=== PATIENT | male | born 1965 | race Caucasian/White ===

== ENCOUNTER 2018-02-01 15:54 | Outpatient (RCR) | payer MEDICARE, MEDICAID ==
[~2018-02-01 15:54] MED LIST: ACIPHX20PT PO; MIRT-22 PO; SUCR1TAB85 PO
== END 2018-02-01 18:00 | disposition home or self-care (01) ==
LOC: PT 15:54
PROVIDERS: ATTEND Family Medicine
DX: G81.10 Spastic hemiplegia affecting unspecified side (principal); M62.572 Muscle wasting and atrophy, not elsewhere classified, left ankle and foot; Z99.3 Dependence on wheelchair
CPT/HCPCS: 97163

== ENCOUNTER 2018-03-09 13:55 | Outpatient (RCR) | payer MEDICARE, MEDICAID ==
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
== END 2018-03-09 18:00 | disposition home or self-care (01) ==
LOC: PT 13:55
PROVIDERS: ATTEND Family Medicine
DX: R26.89 Other abnormalities of gait and mobility (principal); M25.522 Pain in left elbow
CPT/HCPCS: 97162

== ENCOUNTER 2018-06-14 14:30 | Outpatient (RCR) | payer MEDICARE, MEDICAID ==
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
--- NOTE | 2018-05-25 11:01 | PT PLAN OF CARE ---
Physician: Davis Kilgore DO Patient is being seen: 2x/week Therapist: Melo Travis, PT, DPT Medical Diagnosis: decreased balance and strengthening Treatment Diagnosis: same, altered gait Date of Onset: Date of Initial Evaluation: 04/12/18 Date patient was last seen: 05/24/18 Number of treatments: 10 Number of cancellations/No shows: 0 INTERVENTIONS: Patient to be seen for Manual Therapy/STM/MET Strengthening/condition Range of Motion Work Hardening/Cond Stretching Iontophoresis Neuromuscular Re-ed Closed Chain Program Posture/Body mechanics Gait Trg/Balance Trg Home Exercise Program Therapeutic Activities Short Term Goals 4 weeks: Pt will demonstrate full L elbow extension without any pain to improve transfers and showering to improve function and QOL. 8 weeks: Pt will demonstrate significant improvement from in lower extremity function scale from baseline to 33/80 or greater to improve function and QOL. 8 weeks: Pt will demonstrate significant improvement with gait mechanics along with increased endurance from baseline (which is 0 feet) to 171 feet to improve function and QOL. Patient's Goals wants to walk and get rid of L elbow pain Status of Patient's Goals: Progressing Patient Compliance: Fair Prognosis: Reasons for continuing therapy: This is a progress note for Sp Brice. He reports that he is doing pretty good. He reports that he has increased spasms on her R LE. Other than that he feels like he is doing well; however, he wishes that his new wheelchair would come as it has been many months. He demonstrates increased endurance with ambulation as he could only ambulate about 20 feet prior to sitting down and now he is able to ambulate 86 feet prior to sitting down with CGA X 1. Furthermore, he demonstrates increased B LE strength as he requires increased resistance to achieve the same difficult level. However, he continues to have difficulty with his AFO and his foot position, which will never change and makes walking painful. Even though, he is ambulate more here with us, he reports that he will not ambulate at home due to fear of falling. We will continue to improve strength, endurance, and gait mechanics to assist in returning him closer to prior level of function X 8 more sessions along with education on home exercise program that he can continue to assist with his reducing his impairments. OBJECTIVE: Posture: He demonstrates forward head posture, increased thoracic kyphosis, and decreased lumbar lordosis. ROM: R UE and R LE severely limited in all directions. L UE and L LE: WFL's. Strength: L bicep and tricep: 4+/5. R bicep: 3+/5, R tricep: 0/5. L LE: hip abduction, hip extension, hip flexion: 3/5. L LE: flexion and extension, and ankle DF and PF: 0/5. R LE: hip flexion, abduction, extension, knee flexion and extension, ankle DF and PF: 4/5. Palpation: TTP: L elbow medial epicondyle Special Tests: LEFS: : 74% limitation Mobility: MaxA X 1 required with ambulation Gait: With gabrielle walker and CGA X 1: he demonstrated the following gait mechanics: decreased L step lengths, ataxic R LE, decreased R hip flexion, knee flexion and ankle DF, decreased pelvic rotation, decreased velocity, and no LOB during gait Balance: Difficulties with standing; therefore, he has difficulties with balance in all conditions, which we hope can be improved If you have any questions, please contact me at [phone]. Thank you, Melo Travis, PT, DPT ALLAN
== END 2018-07-11 ==
LOC: PT 14:30
PROVIDERS: ATTEND Family Medicine
DX: M62.81 Muscle weakness (generalized) (principal); R26.89 Other abnormalities of gait and mobility; M25.522 Pain in left elbow; G81.91 Hemiplegia, unspecified affecting right dominant side
CPT/HCPCS: 97161